=== PATIENT | female | born 1995 | race Caucasian/White ===

== ENCOUNTER 2025-08-17 10:43 | Outpatient (CLI) | payer OTHER | END 2025-08-17 23:59 | disposition home or self-care (01) | LOC: LAB 10:43 | PROVIDERS: ATTEND Obstetrics & Gynecology Reproductive Endocrinology | DX: Z32.01 Encounter for pregnancy test, result positive (principal) | CPT/HCPCS: 36415; 84144; 84443; 84702 ==